=== PATIENT | male | born 1970 | race Caucasian/White ===

== ENCOUNTER 2021-09-05 12:50 | Observation (INO) | payer OTHER, SELFPAY ==
[2021-09-05] VITALS (14 sets, daily range): BP systolic 112–153; BP diastolic 79–111; PULSE 56–106; RESP 12–20; TEMP 36.3–37.1; O2SAT 97–100; BMI 30.3
--- NOTE | ~2021-09-05 | CT_ITS ---
EXAMINATION: CTA chest PE protocol DATE: 09/05/2021 14:32 INDICATION: Chest pain. Hypertension. TECHNIQUE: Computed tomography angiography (CTA) of the chest was performed with 100 mL Omnipaque-350 intravenous contrast timed to evaluate the pulmonary arteries. Coronal maximum intensity projection 3D-reconstructions were created by the technologist. Automated exposure control and iterative reconst ruction technique were employed. Exam dose: 445.05 mGy-cm total exam DLP. COMPARISON: 09/05/2021 portable AP chest 07/01/2017 CT chest FINDINGS: There is diagnostic contrast enhancement of the pulmonary arteries and no evidence of pulmo nary embolism. No thoracic aortic aneurysm or dissection. No hilar or mediastinal mass lesion or lymphadenopathy. No rmal heart size. There is trace pericardial fluid. No pleural effusion. Stable 12 mm nodule, left lower lobe, not significant change since 07/30/2016, consistent with benign process. No pulmonary infiltrate or consolidation or other pulmonary mass lesion. Included skeletal structures are unremarkable. IMPRESSION: No evidence of pulmonary embolism Years-long stable 12 mm left lower lobe nodule consistent with benign process, likely a pulmonary juan carlos ign granuloma Reviewed, dictated and finalized at [facility]. Reviewed, dictated and finalized at [facility]. K AND WATCH HANDS DIPPER IMPRESSION: No evidence of pulmonary embolism Years-long stable 12 mm left lower lobe nodule consistent with benign process, likely a pulmonary benign granuloma
--- NOTE | ~2021-09-05 | XR_ITS ---
XR chest 1V portable DATE: 09/05/2021 13:19 INDICATION: Chest pain TECHNIQUE: Portable upright AP chest on 09/05/2021 1313 hours COMPARISON: 07/01/2017 CT chest 04/10/2016 CT chest FINDINGS: Normal heart size. No hilar or mediastinal enlargement. Stable circumscribed 4 mm opacity in the medial left lower lobe, unchanged since 07/01/[address] examinations, likely a benign pulmonary granuloma. No pulmonary infiltrate or consolidation, pleural effusion or pulmonary vascular congestion or pneumothorax. IMPRESSION: No active cardiopulmonary disease Reviewed, dictated and finalized at [facility]. ING CONTROL CLERK
--- NOTE | 2021-09-05 12:54 | ECG_ITS ---
Measurements Intervals [place] Rate: 75 P: 21 RI: 150 QRS: 3 QRSD: 112 T: 24 QT: 388 QTc: 435 Interpretive Statements SINUS RHYTHM POSSIBLE LEFT ATRIAL ENLARGEMENT DELAYED PRECORDIAL R/S TRANSITION BORDERLINE ECG Electronically Signed On 09-05-2021 13:14:03 ALMOND BLANCHER OPERATOR by Sebastián Quintero D.O.
--- NOTE | 2021-09-05 13:18 | ED.CHESTPAIN ---
HPI - Chest Pain General Chief Complaint: Chest Pain Stated Complaint: . Time Seen by Provider: 09/05/21 12:54 Source: patient Mode of arrival: ambulatory Limitations: no limitations History of Present Illness HPI narrative: Patient is 50 years old white male presented to the ED complaining of chest tightness, squeezing, pressure started early this morning. Associated with palpitation, fluttering, skipped beats with elevated blood pressure in the range of 150/110. Later patient started having pain at the jaw area mainly on the right side, like tingling and numbness. Subsequently shooting pain at the left side of the back, tingling and numbness of the right hand. Patient reports that he been having stress which is not different than before. Patient is allergic to aspirin. History of asthma. Patient denies smoking, or using drugs. Drinks occasionally. Related Data Home Medications Medication Instructions Recorded Confirmed meloxicam 09/05/21 montelukast mg 09/05/21 testosterone cypionate mg 09/05/21 Allergies Allergy/AdvReac Type Severity Reaction Status Date / Time aspirin Allergy Unknown Verified 09/05/21 13:11 NSAIDS (Non-Steroidal Allergy Unknown Verified 09/05/21 13:11 Anti-Inflamma Review of Systems Review of Systems: CONSTITUTIONAL: Denies fever, chills, or sweats. EYES: Denies visual changes, redness, or discharge. ENT: Denies rhinorrhea, congestion, sore throat, or otalgia. CARDIOVASCULAR: Chest pain RESPIRATORY: Denies cough or dyspnea. GASTROINTESTINAL: Denies abdominal pain, nausea, vomiting, or diarrhea. GENITOURINARY: Denies dysuria or hematuria. SKIN: Denies rash or itching. MUSCULOSKELETAL: Denies back pain, joint pain, or myalgia. NEUROLOGIC: Denies headache, numbness, or weakness. PSYCHIATRIC: Denies anxiety or depression. Exam Narrative: General appearance: Well-developed, well-nourished Skin: Normal color Head: Normocephalic, nontraumatic Eyes: Clear conjunctiva Chest and respiratory: Airway patent, no respiratory distress, no accessory muscle use Heart: Regular rate/rhythm Vascular: Normal peripheral pulses, normal capillary refill. Musculoskeletal: Normal range of motion, nontender back Neurologic: Alert and oriented ?3, CLOTH LAYER is normal as tested, no gross motor deficit Course Course Emergency Course: Stable Vital Signs Vital signs: Vital Signs Temperature 37.1 C 09/05/21 12:56 Pulse Rate 83 09/05/21 12:56 Respiratory Rate 12 09/05/21 12:56 Blood Pressure 153/111 H 09/05/21 12:56 Pulse Oximetry 100 09/05/21 12:56 Temperature 37.1 C 09/05/21 12:56 Pulse Rate 72 09/05/21 13:51 Respiratory Rate 12 09/05/21 13:51 Blood Pressure 138/101 H 09/05/21 13:51 Pulse Oximetry 98 09/05/21 13:51 MDM - Chest Pain MDM Narrative Medical decision making narrative: Patient presents with chest pain, and palpitation. Depression diagnosis as below Differential Diagnosis Differential diagnosis: Likely atypical chest pain and other (Palpitation, hyperthyroidism, electrolyte imbalance, anxiety like symptoms, coronary artery syndrome, pulmonary embolism) Lab Data Result diagrams: 09/05/21 13:21 09/05/21 13:21 Labs: Lab Results 09/05/21 09/05/21 09/05/21 Range/Units 13:21 13:21 13:21 WBC 8.4 (4.5-10.0) K/mm3 RBC 5.03 (4.6-6.20) M/mm3 Hgb 16.1 (14.0-18.0) g/dL Hct 47.8 (42.0-52.0) % MCV 95.0 (80-100) fl MCH 32.0 (26-34) pg MCHC 33.7 (32-36) g/dl RDW 12.8 (11.5-14.5) % Plt Count 240 (150-375) k/mm3 MPV 9.7 (7.4-10.4) fl Immature Gran % (Auto) 0.4 (0-0.5) % Neut % (Auto) 56.9 (45.5-7
[2021-09-05 13:29] LABS: Basophils Percent Auto 0.5 % (0.2-1.2); Eosinophils Absolute Auto 0.9 K/mm3 (0-0.3); Eosinophils Percent Auto 10.4 % (0-4.4); Hematocrit 47.8 % (42.0-52.0); Hemoglobin 16.1 g/dL (14.0-18.0); Immature Granulocyte Absolute 0.03 K/mm3 (0.00-0.031); Immature Granulocyte Percent A 0.4 % (0-0.5); Lymphocytes Percent Auto 21.4 % (18.3-44.2); Mean Corpuscular HGB Conc 33.7 g/dl (32-36); Mean Platelet Volume 9.7 fl (7.4-10.4); Monocytes Absolute Auto 0.9 K/mm3 (0.1-0.6); Monocytes Percent Auto 10.4 % (2.6-8.5); Neutrophils Absolute Auto 4.8 K/mm3 (1.3-6.7); Neutrophils Percent Auto 56.9 % (45.5-73.1); Platelet Count Result 240 k/mm3 (150-375); Red Blood Count 5.03 M/mm3 (4.6-6.20); Red Cell Distribution Width 12.8 % (11.5-14.5); White Blood Count 8.4 K/mm3 (4.5-10.0)
[2021-09-05 13:44] LABS: Prothrombin Time 13.2 Seconds (11.1-14.7)
[2021-09-05 13:46] LABS: Alanine Aminotransferase 74 U/L (4-50); Albumin Level 4.5 g/dL (3.5-5.1); Alkaline Phosphatase 76 U/L (38-126); Anion Gap 11 mmol/L (8-16); Aspartate Amino Transferase 47 U/L (17-59); Bilirubin,Total 1.3 mg/dL (0.2-1.3); Blood Urea Nitrogen 14 mg/dL (9-20); Calcium 9.3 mg/dL (8.4-10.2); Carbon Dioxide 28 mmol/L (22-30); Chloride 99 mmol/L (98-107); D Dimer 0.99 ug/mL (<0.48); Estimated CRCL calculation 82 ml/min; Estimated Glomerular Filt Rate > 60; Glucose 93 mg/dL (65-110); Potassium 4.2 mmol/L (3.4-5.0); Sodium 138 mmol/L (137-145)
[2021-09-05] MEDS: NITROGLYCERIN SL 0.4 MG TABLET SUBLINGUAL (13:49)
[2021-09-05] MEDS: METOPROLOL TARTRATE 50 MG TAB 25 MG PO (13:49)
[2021-09-05] MEDS: CLOPIDOGREL BISULFATE 75 MG TABLET PO (13:49)
[2021-09-05 13:55] LABS: NT Pro B Type Natriuretic Pept 41 pg/mL (5-100)
[2021-09-05 13:57] LABS: Troponin I < 0.012 ng/mL (0.000-0.034)
--- NOTE | 2021-09-05 16:10 | ECG_ITS ---
Measurements Intervals [place] Rate: 55 P: 52 OR: 153 QRS: 6 QRSD: 121 T: 47 QT: 423 QTc: 408 Interpretive Statements SINUS BRADYCARDIA POSSIBLE LEFT ATRIAL ENLARGEMENT DELAYED PRECORDIAL R/S TRANSITION BORDERLINE ECG Electronically Signed On 09-05-2021 18:17:20 KETTLE GIRL by Sebastián Quintero D.O.
[2021-09-05 16:51] LABS: Troponin I < 0.012 ng/mL (0.000-0.034)
--- NOTE | 2021-09-05 17:11 | PC.NURSE ---
This patient, Armando Mccoy, was admitted to IMU Room 212-01. Patient/family oriented to hospital policies and general routines including ID bracelet, bed and alarms, visiting hours, pain management, procedures, bathroom and other care routines, personal items, smoking policy, room service/diet, and visiting hours. Information on how to activate the Rapid Response Team has been discussed. Patient/Family are encouraged to report perceived risks to care and to ask questions if they do not understand what they are told or what they should do.
[2021-09-05 20:17] LABS: Troponin I < 0.012 ng/mL (0.000-0.034)
[2021-09-05] MEDS: METOPROLOL TARTRATE 25 MG TABLET PO (20:53)
--- NOTE | 2021-09-05 22:55 | PM.IMHP ---
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 The patient stated that he has been feeling some rapid heart rate in possibly PVCs. The patient stated in the past he is had what felt like PVCs were is had some skipped beats. He has not had any previous heart disease. He does have some anxiety but states he feels pretty relaxed. Patient recent came back from vacation in [place]. Today the patient came to the emergency room complaining of chest tightness, squeezing, pressure it was midsternal and started early this morning. He has some palpitations, fluttering and some skipped beats with elevated blood pressure this morning. Patient's blood pressure in was in the range of 150/110. He was also having some pain to his left jaw area on the right side though. He also had shooting pain to the left side of the back tingling numbness of the right hand. The patient admits to drinking too much caffeine at times. 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 The patient stated he recently has not had any problems with that condition. The patient's EKG was sinus rhythm possible left atrial enlargement. His next EKG was showing sinus bradycardia. D-dimer was found to be 0.99. Patient's troponins are negative x3. Chest CTA was read as no evidence of pulmonary embolism. Years long stable 12 mm left lower lobe nodule consistent with benign process. Likely a pulmonary benign granuloma. Chest x-ray was read as no acute cardiopulmonary disease. Patient still has some mild discomfort to the mid sternum. It is nonreproducible. The patient states that he has not had any injury are lifted anything heavy. The patient had been given a metoprolol and a Plavix in the emergency room. Cardiology has been consulted. The patient is being admitted to observation status on the date of service of 09/05/2021. Chief Complaint: Chest pain Review of Systems Review of Systems: All systems reviewed & are unremarkable except as noted in HPI and below Constitutional: Constitutional: Reports as per HPI and Reports no additional constitutional complaints Eyes: Eyes: Reports as per HPI and Reports no additional eye complaints ENT: Reports system reviewed and no additional complaints, except as documented and Reports Normal hearing present Cardiovascular: Cardiovascular: Reports no additional cardiovascular complaints Respiratory: Respiratory: Reports no additional respiratory complaints and Reports no additional respiratory complaints Gastrointestinal: Gastrointestinal: Reports as per HPI and Reports no additional gastrointestinal complaints Musculoskeletal: Musculoskeletal: Reports no additional musculoskeletal complaints Integumentary/Breasts: Skin/Breast: Reports system reviewed and no additional complaints, except as docu and Reports as per HPI Neurologic: Reports system reviewed and no additional complaints, except as documented, Reports as per HPI and Reports Normal hearing present Psychiatric: Psychiatric: Reports no additional psychiatric complaints and Reports as per HPI Endocrine: Endocrine: Reports no additional endocrine complaints Hematologic/Lymphatic: Hematologic/Lymphatic: Reports no additional hematologic/lymphatic complaints Allergic/Immunologic: Allergic/Immunologic: Reports no additional allergic/immunologic complaints PMFSH Past Medical History Medical History (Updated 09/05/21 @ 23:43 by Opal Darnell NP) Anxiety Samter's triad Surgical History Surgical History (Updated 09/05/21 @ 23:43 by Opal Darnell NP) H/O arthroscopic knee surgery History of back surgery History of shoulder surgery Family History Family History Mother Lung cancer Social History Social History (Updated 09/05/21 @ 23:44 by Opal Darnell NP) Social History: The patient works has the [employer]
--- NOTE | 2021-09-06 | ECHO_ITS ---
Patient Info Name: Armando Mccoy Age: 50 years : 1970 Gender: Male Ht: 70 in Wt: 211 lbs BSA: 2.20 m2 HR: 68 bpm BP: 126 / 72 mmHg Heart Rhythm: Sinus Rhythm Technical Quality: Fair Exam Date: 09/06/2021 7:30 AM Exam Location: [facility] Pulmonary Patient Status: Inpatient Admit Date: 09/05/2021 Staff Ordering Physician: Opal Darnell NP Rug Dry Room Attendant: Darlyn Hernández RDCS Attending Provider: Alyce Muro PA-C Referring Physician: Carie CHÁVEZ; Exam Type: CA echo doppler color flow Study Info Indications - chest pain, murmur Complete two-dimensional, color flow and Doppler transthoracic echocardiogram is performed. Summary 1. Complete two-dimensional, color flow and Doppler transthoracic echocardiogram is performed. 2. Left ventricular chamber dimension is normal. 3. Left ventricular systolic function is normal, estimated at 60-65%. 4. There is mildly increased left ventricular wall thickness. 5. The left ventricular diastolic function is grade I diastolic dysfunction. 6. The aortic root size at the sinus of Valsalva is mildly dilated. Left Ventricle Left ventricular chamber dimension is normal. Left ventricular systolic function is normal, estimated at 60-65%. There is mildly increased left ventricular wall thickness. The left ventricular diastolic function is grade I diastolic dysfunction. Right Ventricle Right ventricular chamber dimension is normal. Right ventricular systolic function is normal. Left Atria Left atrial chamber dimension is normal. Right Atria Right atrial chamber dimension is normal. Atrial Septum Intact interatrial septum visualized by color flow imaging. Aortic Valve The aortic valve is trileaflet. There is mild aortic valve sclerosis. There is no aortic valve stenosis. There is trace aortic valve regurgitation. Pulmonic Valve The pulmonic valve is normal. There is no pulmonic valve stenosis. There is trace pulmonic regurgitation. Mitral Valve The mitral valve has normal leaflets. There is no mitral valve stenosis. There is trace mitral valve regurgitation. Tricuspid Valve The tricuspid valve leaflets are normal. There is no significant tricuspid valve stenosis. There is trace tricuspid valve regurgitation. No pulmonary hypertension, estimated pulmonary arterial systolic pressure is 27 mmHg. Pericardium/Pleural The pericardium appears epicardial fat pad. There is no pericardial effusion. Inferior Vena Cava Normal inferior vena cava with <50% collapse upon inspiration consistent with normal right atrial pressure, 10 mmHg. Aorta The aortic root size at the sinus of Valsalva is mildly dilated. Left Ventricular Outflow Tract Name Value Normal LVOT 2D LVOT Diameter 2.3 cm LVOT Doppler LVOT Peak Gradient 3 mmHg LVOT Mean Gradient 1 mmHg LVOT VTI 17 cm LVOT VTI/AV VTI Ratio 0.8 LVOT Stroke Volume 71 ml LVOT CO 4.1 l/min
--- NOTE | 2021-09-06 | EST_ITS ---
Patient Info Name: Armando Mccoy Age: 50 years : 1970 Gender: Male Ht: 70 in Wt: 212 lbs BSA: 2.20 m2 HR: 82 bpm BP: 124 / 89 mmHg Heart Rhythm: Sinus Rhythm Exam Date: 09/06/2021 8:53 AM Exam Location: [facility] Stress Patient Status: Outpatient Admit Date: 09/05/2021 Staff Ordering Physician: Opal Darnell NP Attending Provider: Alyce Muro PA-C Exercise Technologist: Lovely Calix CT Exercise Physician: Octavio Gamino MD Exam Type: CA stress test treadmill Study Info Indications R07.9 - Chest pain, unspecified An exercise stress test was performed. Summary 1. Normal ST segment response to stress. 2. HTN BP response. 3. Below average exercise capacity. Protocol: [facility] Stress ECG Details Stage: REST Duration (min): 2 min : 12 sec Speed (mph): 0.0 Grade (%): 0 HR (bpm): 72 SBP (mmHg): 124 DBP (mmHg): 89 METS: --- Stage: REST Duration (min): 20 min : 1 sec Speed (mph): 0.0 Grade (%): 0 HR (bpm): 82 SBP (mmHg): 124 DBP (mmHg): 89 METS: --- Stage: STAGE 1 Duration (min): 1 min : 0 sec Speed (mph): 1.7 Grade (%): 10 HR (bpm): 106 SBP (mmHg): 124 DBP (mmHg): 89 METS: --- Stage: STAGE 1 Duration (min): 2 min : 0 sec Speed (mph): 1.7 Grade (%): 10 HR (bpm): 116 SBP (mmHg): 124 DBP (mmHg): 89 METS: --- Stage: STAGE 1 Duration (min): 3 min : 0 sec Speed (mph): 1.7 Grade (%): 10 HR (bpm): 100 SBP (mmHg): 149 DBP (mmHg): 73 METS: --- Stage: STAGE 2 Duration (min): 1 min : 0 sec Speed (mph): 2.5 Grade (%): 12 HR (bpm): 115 SBP (mmHg): 149 DBP (mmHg): 73 METS: --- Stage: STAGE 2 Duration (min): 2 min : 0 sec Speed (mph): 2.5 Grade (%): 12 HR (bpm): 130 SBP (mmHg): 186 DBP (mmHg): 89 METS: --- Stage: STAGE 2 Duration (min): 3 min : 0 sec Speed (mph): 2.5 Grade (%): 12 HR (bpm): 133 SBP (mmHg): 186 DBP (mmHg): 89 METS: --- Stage: STAGE 3 Duration (min): 1 min : 0 sec Speed (mph): 3.4 Grade (%): 14 HR (bpm): 148 SBP (mmHg): 186 DBP (mmHg): 86 METS: --- Stage: STAGE 3 Duration (min): 2 min : 0 sec Speed (mph): 3.4 Grade (%): 14 HR (bpm): 156 SBP (mmHg): 186 DBP (mmHg): 86 METS: --- Stage: STAGE 3 Duration (min): 3 min : 0 sec Speed (mph): 3.4 Grade (%): 14 HR (bpm): 160 SBP (mmHg): 220 DBP (mmHg): 93 METS: --- Stage: STAGE 4 Duration (min): 0 min : 30 sec Speed (mph): 4.2 Grade (%): 16 HR (bpm): 162 SBP (mmHg): 220 DBP (mmHg): 93 METS: --- Stage: RECOVERY Duration (min): 0 min : 29 sec Speed (mph): 0.0 Grade (%): 0 HR (bpm): 166 SBP (mmHg): 220 DBP (mmHg): 93 METS: --- Stage: REC
[2021-09-06 02:00] VITALS: PULSE 63
[2021-09-06 04:00] VITALS: BP 126/72; PULSE 55; PULSE 87; RESP 20; TEMP 36.6; O2SAT 97; O2SAT 99
[2021-09-06 05:54] LABS: Basophils Absolute Auto 0.1 K/mm3 (0.0-0.1); Basophils Percent Auto 0.7 % (0.2-1.2); Eosinophils Absolute Auto 1.6 K/mm3 (0-0.3); Eosinophils Percent Auto 18.9 % (0-4.4); Hematocrit 47.7 % (42.0-52.0); Hemoglobin 16.3 g/dL (14.0-18.0); Immature Granulocyte Absolute 0.04 K/mm3 (0.00-0.031); Immature Granulocyte Percent A 0.5 % (0-0.5); Lymphocytes Absolute Auto 2.41 K/mm3 (0.9-3.2); Lymphocytes Percent Auto 29.2 % (18.3-44.2); Mean Corpuscular HGB Conc 34.2 g/dl (32-36); Mean Corpuscular Volume 93.7 fl (80-100); Mean Platelet Volume 9.9 fl (7.4-10.4); Monocytes Percent Auto 12.1 % (2.6-8.5); Neutrophils Absolute Auto 3.2 K/mm3 (1.3-6.7); Neutrophils Percent Auto 38.6 % (45.5-73.1); Platelet Count Result 249 k/mm3 (150-375); Red Blood Count 5.09 M/mm3 (4.6-6.20); Red Cell Distribution Width 12.5 % (11.5-14.5); White Blood Count 8.3 K/mm3 (4.5-10.0)
[2021-09-06 06:00] VITALS: PULSE 68
[2021-09-06 06:03] LABS: Lactic Acid Reflex 0.7 mmol/L (0.7-2.1)
[2021-09-06 06:06] LABS: Cholesterol 181 mg/dL (0-200); HDL Direct 36 mg/dL; Triglycerides 95 mg/dL (<150)
[2021-09-06 06:12] LABS: Alanine Aminotransferase 67 U/L (4-50); Albumin Level 4.3 g/dL (3.5-5.1); Alkaline Phosphatase 69 U/L (38-126); Anion Gap 10 mmol/L (8-16); Aspartate Amino Transferase 40 U/L (17-59); Bilirubin,Total 1.1 mg/dL (0.2-1.3); Blood Urea Nitrogen 18 mg/dL (9-20); CRP 0.8 mg/dL (<1.0); Calcium 9.2 mg/dL (8.4-10.2); Carbon Dioxide 29 mmol/L (22-30); Chloride 103 mmol/L (98-107); Estimated CRCL calculation 84 ml/min; Estimated Glomerular Filt Rate > 60; Glucose 93 mg/dL (65-110); Lactate Dehydrogenase 424 U/L (313-618); Lipase 417 U/L (23-300); Magnesium 2.1 mg/dL (1.6-2.3); Potassium 4.1 mmol/L (3.4-5.0); Sodium 142 mmol/L (137-145)
[2021-09-06 06:16] LABS: LDL Cholesterol Direct 120 mg/dL
[2021-09-06 08:00] VITALS: BP 127/90; PULSE 58; PULSE 64; RESP 14; TEMP 36.2; O2SAT 97
--- NOTE | 2021-09-06 08:45 | PC.NURSE ---
Patient to stress lab via wheelchair.
--- NOTE | 2021-09-06 10:40 | PC.NURSE ---
Patient returned to room following stress test.
--- NOTE | 2021-09-06 10:46 | PM.CNCAR ---
Assessment and Plan Assessment and plan (1) Chest pain: Qualifiers: Chest pain type: unspecified Qualified Code(s): R07.9 - Chest pain, unspecified Code(s): R07.9 - Chest pain, unspecified Status: Acute Assessment and Plan: Probably not related to coronary disease. Possibly related to significantly elevated blood pressure at the time. He has ruled out for myocardial infarction and serial EKGs have not shown any acute ST or T-wave abnormalities. Exercise stress EKG is ordered. Recommend treatment for his blood pressure. (2) Palpitations: Code(s): R00.2 - Palpitations Status: Acute Assessment and Plan: Likely benign. TSH is normal. Recommend that he reduce or eliminate his caffeine intake, reduce stress as much as possible, avoid Sudafed and like compounds and improved sleep av it is if need be. If his palpitations do not improve with these changes, would recommend an outpatient ekg monitor. (3) Essential hypertension: Code(s): I10 - Essential (primary) hypertension Status: Acute Assessment and Plan: Will discontinue metoprolol. I did talk about using metoprolol for treatment his palpitations and his high blood pressure but he is concerned about the side effects and particular lethargy and tiredness. Therefore I am going to start him on losartan 25 mg daily. History of Present Illness History of Present Illness Consult date/time: 09/06/21 10:46 Requesting physician: Nettie Jones MD Consult reason: chest pain and Other (Palpitations) Reason For Visit: Chest Pain,palpations Narrative: Reason consultation: Chest pain, palpitations Date of service 09/06/2021 Requesting provider: Dr. 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 Patient has noticed some fluttering in his chest for about 1 year. Flutter in became more significant over the past month or so. He had an episode about a month ago in which she had some fluttering which lasted for several hours. He states that his fluttering will feel like a skipped beat every palpate his pulse. He has also noticed that his blood pressure has been more elevated as of late as high as in the 160s to 170s range over 1 teens. Yesterday it was noticed that his blood pressure was high. He states that he woke up in simply did not feel very well. He then started developing a pressure and squeezing sensation in his chest. He noticed some tingling in his teeth and jaw area on the right side. He also had some sharp stabbing pains that went into his back. This sharp stabbing pains or short lived and on lasted for secondary 2. The pressure and squeezing sensation though lasted for about 4-5 hours at least. It was constant. There is no associated symptoms of nausea, shortness breath or diaphoresis. Because of the constellation of symptoms he decided to go to the emergency department for further workup and evaluation. He is ruled out for myocardial infarction with serial cardiac enzymes. He does admit to drinking a lot of diet Coke. EKG showed no acute ST or T-wave abnormalities. Review of Systems Review of Systems: All systems reviewed & are unremarkable except as noted in HPI and below Constitutional: Constitutional: Denies weakness Eyes: Eyes: Denies blurry vision ENT: Reports Normal hearing present and Reports nasal congestion Cardiovascular: Cardiovascular: Reports chest pain Respiratory: Respiratory: Denies dyspnea Gastrointestinal: Gastrointestinal: Denies abdominal pain Genitourinary: Genitourinary: Denies dysuria Musculoskeletal: Musculoskeletal: Denies neck pain Integumentary/Breasts: Skin/Breast: Denies dry skin Neurologic: Denies headache(s) Psychiatric: Psychiatric: Denies anxiety Endocrine: Endocrine: Denies excessive sweating Hematologic/Lymphatic: Hematologic/Lymphatic: Den
[2021-09-06] MEDS: LOSARTAN POTASSIUM 25 MG TABLET PO (11:52)
--- NOTE | 2021-09-06 12:10 | PM.DS ---
DS: Admitting Diagnosis Discharge Date 09/06/2021 Admitting Diagnosis Chest pain, palpitations DS: Discharge Diagnosis Discharge Diagnosis (1) Chest pain: Qualifiers: Chest pain type: unspecified Qualified Code(s): R07.9 - Chest pain, unspecified Code(s): R07.9 - Chest pain, unspecified Status: Acute Assessment and Plan: Presented with chest tightness. Cardiac enzymes negative x3. EKG reviewed. Echo reviewed - no wall motion abnormalities. Stress test performed and was normal. He was seen in consultation by cardiology. [place] to be related to elevated blood pressure on presentation. (2) Palpitations: Code(s): R00.2 - Palpitations Status: Acute Assessment and Plan: Evaluated by cardiology. Normal TSH. Recommended to decrease caffeine consumption as patient admitted to drinking several diet cokes daily. Also to decrease stress and improve sleep hygiene. If palpitations persist he can follow up with cardiology for outpatient telemetry monitoring. (3) Essential hypertension: Code(s): I10 - Essential (primary) hypertension Status: Acute Assessment and Plan: Blood pressure markedly elevated on presentation up to 153/111. Metoprolol initiated for managment of hypertension and for treatment of palpitations but patient was concerned about adverse effects and therefore was started on losartan 25 mg daily which he will continue. Follow up with PCP in 1 week for blood pressure monitoring. Blood pressure normalized prior to discharge. (4) Anxiety: Code(s): F41.9 - Anxiety disorder, unspecified Status: Chronic Assessment and Plan: No acute issues. Continue venlafaxine. DS: Summary Hospital Course Hospital Course: Date of admission: 09/05/2021 Date of discharge: 09/06/2021 Armando Mccoy is a 50-year-old male with a history of anxiety, hypertension, and [place] who presented to the emergency department on 09/05/2021 with complaints of chest tightness and pressure with associated palpitations and elevated blood pressure. On presentation to the emergency department, his blood pressure was 153/111, additional vital signs were stable, CBC and BMP within normal limits, troponin negative, CXR showed no acute cardiopulmonary disease, and CTA showed no PE. He was admitted to the hospitalist service for further evaluation and management and was seen in consultation by cardiology. Please see above for further details. His chest pain resolved and he had a negative stress test. His blood pressure improved with initiation of medication which he will continue. The patient was feeling back to his usual state of health and given his overall improvement, he was determined to no longer require inpatient care and was felt to be stable for discharge. Consulting specialist in agreement with discharge. He was discharged in hemodynamically stable condition on 09/06/2021. Status at Discharge Functional status at discharge: independent ambulation Overall status at discharge: patient is back to baseline Time Spent with Patient Time attestation: Total time spent providing and/or coordinating discharge services: 28 minutes Time spent: Less than 30 minutes Exam Narrative: Mr. Mccoy is a well-nourished, well-appearing 50-year-old female who is lying semi-recumbent in bed. He appears comfortable and is in NARD. Neuro: awake, alert and oriented x4, speech clear, no focal neuro deficits noted HEENMT: normocephalic, atraumatic, EOMI, sclerae anicteric Neck: supple, no lymphadenopathy Respiratory: clear to auscultation bilaterally, nonlabored breathing Cardio: regular rate, regular rhythm with S1-S2 Abdomen: nondistended, normoactive bowel sounds, soft, nontender to palpation Skin: no rashes or lesions, warm and dry Psych: appropriate mood and affect, judgment and insight intact DS: Data Data Completed and Pending Labs on day of discharge: Labs from [facility]
== END 2021-09-06 12:46 | disposition home or self-care (01) ==
LOC: ANHED 15:11 → ANHIMU 16:29
PROVIDERS: Nurse Practitioner; Admitting Provider Internal Medicine; Emergency Provider Emergency Medicine; Visit Provider Internal Medicine
DX: R07.9 Chest pain, unspecified (principal); R91.8 Other nonspecific abnormal finding of lung field; R00.2 Palpitations; F41.9 Anxiety disorder, unspecified; I10 Essential (primary) hypertension; J45.909 Unspecified asthma, uncomplicated; J33.9 Nasal polyp, unspecified; Z88.6 Allergy status to analgesic agent
CPT/HCPCS: 36415; 71045; 71275; 80053; 80061; 82728; 83605; 83615; 83690; 83735; 83880; 84443; 84484; 85025; 85380; 85610; 85730; 86140; 93005; 93017; 93306; 99285; A9270; G0378; Q9967

== ENCOUNTER 2023-02-25 12:20 | Outpatient (NON) | payer OTHER, SELFPAY | END 2023-02-25 12:21 | disposition home or self-care (01) | LOC: ANHLAB 02-27 12:23 | PROVIDERS: Visit Provider Nurse Practitioner | DX: L28.1 Prurigo nodularis (principal) | CPT/HCPCS: 88305 ==

== ENCOUNTER 2025-03-22 08:22 | Outpatient (CLI) | payer OTHER, SELFPAY ==
--- NOTE | 2025-03-22 | ECG_ITS ---
Test Date: 2025-03-22 08:42:38 Measurements Intervals [place] Rate: 59 P: 40 MD: 148 QRS: -17 QRSD: 120 T: 41 QT: 412 QTc: 410 Interpretive Statements SINUS BRADYCARDIA INTRAVENTRICULAR CONDUCTION DELAY DELAYED PRECORDIAL R/S TRANSITION BORDERLINE ECG No previous ECG available for comparison Electronically Signed On 03-22-2025 09:05:59 CDT by Sebastián Quintero D.O.
--- OUTSIDE RECORDS SUMMARY | 2025-03-22 08:29 | XMS_ITS | Clinical Summary ---
Author Organization [facility] Address [address] [place] [address] Care Team Providers Care Plant Electrician Name Role Phone Unavailable Primary Care Provider Unavailabl e Source Comments [facility],non-owned Affiliates and Associated Physician Practices is amultiple site organization consisting of ambulatory clinics and hospital sitesin [place], [place], [place] and [place]. This disclosure is being madepursuant to the Care Everywhere program and may not contain all information available regarding this patient. Last updated 18.[facility] B[facility] Box Allergies No known active allergies Medications * Be aware that medications may not be up to date on this document. Alwaysverify current medications with the patient. 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 At that time he notes significant generalized joint pain and fatigue. Has had improved fatigue symptoms since but experiences muscle cramping of the lower extremities with cooler temperatures. Also reports knee and ankle pain as well as AM joint stiffness that improves with activity. Does have moderate tricompartmental OA seen on 2016 x-ray of the left knee. Denies other joint complaints and no CTD symptoms. No contributory FH. Physical exam revealed mild tenderness to palpation of the right lateral malleolus/anteroinferior aspect. No synovitis appreciated on exam with full range of motion all extremities and 5/5 muscle strength. At this time there does not appear to be a connective tissue disease or inflammatory arthritis occurring. Recommend follow-up if symptoms worsen and/or new symptoms develop. Seen with Dr. Cagle. 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 Gender Identity Not on file Sexual Orientation Not on file Plan of Treatment Health Maintenance Due Date Last Done Comments COLOGUARD (AGES 45-75) - COL ON CA SCREENING 1971 COLON MONITORING 1971 COLONOSCOPY - COLON CA SCREENING 1971 CT COLONOGRAPHY - COLON CA SCREENING 1971 Colorectal Cancer Screening 1971 FIT - COLON CA SCREENING 1971 FLEX SIG - COLON CA SCREENING 1971 LIPID TESTING 1971 HIV SCREENING 12/16/1986 HEPATITIS C SCREENING 12/12/1989 DTAP/TDAP/TD VACCINES (1 - Tdap) 12/16/1990 HEPATITIS B VACCINE (1 of 3 - 19+ 3-dose series) 12/16/1990 PNEUMOCOCCAL VACCINE 50+ (1 of 1 - PCV) 12/16/2021 ZOSTER VACCINE (1 of 2) 12/16/2021 COVID-19 VACCINE (1 - 2023-2 5 season) 2024 DEPRESSION SCREENING 08/19/2024 INFLUENZA VACCINE (#1) 2025 HIB VACCINE Aged Out No longer eligi ble based on patient's age to complete this topic HPV VACCINE Aged Out No longer eligi ble based on patient's age to complete this topic MENINGOCOCCAL (Group B) VACC INE SHARED DECISION-MAKING Aged Out No longer eligibl e based on patient's age to complete this topic MENINGOCOCCAL GROUPS A/C/Y/W VACCINE Aged Out No longer eligible b ased on patient's age to complete this topic Insurance
--- OUTSIDE RECORDS SUMMARY | 2025-03-22 08:29 | XMS_ITS | Encounter Summary ---
Author Organization [facility] Address [address] [place] [address] Care Team Providers Care Pet Sitter Name Role Phone Zaida Perea MD Primary Care Provider [phone] Encounter Details Date Type Department Care Team (Late st Contact Info) Description 02/12/2008 Outpatient Historical HIS MRI DEPT Timoteo Murdock MD [address] [phone] Unspecified Sinusitis (Chronic) Social History Tobacco Use Types Packs/Day Years Used Date Smoking Tobacco: Never Alcohol Use Standard Drinks/Week Comments Yes 5 (1 standard drink = 0.6 oz pur e alcohol) Sex and Gender Information Value Date Recorded Sex Assigned at Not on file 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 Gender Identity Not on file Sexual Orientation Not on file documented as of this encounter Plan of Treatment Not on file documented as of this encounter Procedures Procedure Name Priority Date/Time Associated Diagnosis Comments CT SINUS FACIAL BONES WO CONTRAST Timed Study 02/12/2008 3:41 PM CDT documented in this encounter Results * CT SINUS FACIAL BONES WO CONTRAST (02/12/2008 3:41 PM CDT) Anatomical Region Laterality Modality Head Other 02/12/2008 3:41 PM CDT Narrative 02/12/2008 5:04 PM CDT [address] [address] Admit Date: 02/12/2008 LUIS PINZON Sex: M Admit Prov: TIMOTEO MURDOCK Date: 1970 Primary Care Prov: ZAIDA PEREA CMRN: [id number] [id number] IM[facility]ING [facility] Ordering Prov: N/A Accession Number: [id number] Interpretation Maxillofacial CT without contrast 02/12/2008 History: Chronic sinusitis Comparison: 12/10/2007 The stealth sinus protocol was performed, demonstrating complete opacification of the frontal and ethmoid sinuses. There is near-complete opacification of the left maxillary and the sphenoid region. There is approximately 50% opacification of the right maxillary sinus. It appears that the patient has undergone partial right middle turbinate resection and prior uncinate resection. There is no fat stranding in the orbits, and no bony destruction is seen. Impression: Paranasal sinus disease worsened compared with November 2007. . Dictated by: RADHA HONEYCUTT 02/12/2008 16:12 Electronically signed by: RADHA HONEYCUTT 02/12/2008 17:03 Transcribed: 02/12/2008 16:14 AMK Procedure Note Radha Honeycutt - 02/12/2008 [facility] [address] [place], [place] [address] Admit Date: 02/12/2008 LUIS PINZON Sex: M Admit Prov: TIMOTEO MURDOCK Date: 1970 Primary Care Prov: ZAIDA PEREA CMRN: [id number] [facility] [id number] IMAGING SERVICES Ordering Prov: N/A Interpretation Maxillofacial CT without contrast 02/12/2008 History: Chronic sinusitis Comparison: 12/10/2007 The stealth sinus protocol was performed, demonstrating complete opacification of the frontal and ethmoid sinuses. There isnear-complete opacification of the left maxillary and the sphenoid region. Thereis approximately 50% opacification of the right maxillary sinus. Itappears that the patient has undergone partial right middle turbinateresection and prior uncinate resection. There is no fat stranding in the orbits,and no bony destruction is seen. Impression: Paranasal sinus disease worsened compared with November2007. . Dictated by: RADHA HONEYCUTT 02/12/2008 16:12 Electronically signed by: RADHA HONEYCUTT 02/12/2008 17:03 Transcribed: 02/12/2008 16:14 AMK Timoteo Murdock MD CT ORDERABLES Final Result documented in this encounter Visit Diagnoses Diagnosis Unspecified sinusitis (chronic) documented in this encounter Care Teams Pet Sitter Relationship Specialty Start Date End Date Zaida Perea MD [address] [address] PCP - General 12/24/07 03/27/16 documented as of this encounter
--- OUTSIDE RECORDS SUMMARY | 2025-03-22 08:29 | XMS_ITS | Encounter Summary ---
Author Organization [facility] Address [address] [place] [address] Care Team Providers Care Event Specialist Food Demonstrator Name Role Phone Pedro Luis Perea MD Primary Care Provider [phone] Encounter Details Date Type Department Care Team (Latest Contact Info) Description 12/25/2007 Outpatient Historical HIS [facility] Pedro Luis Jones MD [address] [address] Unspecified Asthma Social History Tobacco Use Types Packs/Day Years Used Date Smoking Tobacco: Never Alcohol Use Standard Drinks/Week Comments Yes 5 (1 standard drink = 0.6 oz pur e alcohol) Sex and Gender Information Value Date Recorded Sex Assigned at Not on file Legal Sex Male 3:16 AM INTERVENTION SPECIALIST Gender Identity Not on file Sexual Orientation Not on file documented as of this encounter Plan of Treatment Not on file documented as of this encounter Visit Diagnoses Diagnosis Unspecified asthma(493.90) Unspecified asthma documented in this encounter Care Teams Event Specialist Food Demonstrator Relationship Specialty Start Date End Date Pedro Luis Perea MD [address] [address] PCP - General 12/24/07 03/27/16 documented as of this encounter
--- OUTSIDE RECORDS SUMMARY | 2025-03-22 08:29 | XMS_ITS | Encounter Summary ---
Author Organization [facility] Address [address] [place] [address] Care Team Providers Care Ultrasonic Seaming Machine Operator Name Role Phone Pedro Luis Perea MD Primary Care Provider Encounter Details Date Type Department Care Team (Latest Contact Info) Description 10/08/2008 Outpatient Historical HIS [facility] Pedro Luis Jones MD [address] [address] Routine General Medical Examination at a Health Care Facility Social History Tobacco Use Types Packs/Day Years Used Date Smoking Tobacco: Never Alcohol Use Standard Drinks/Week Comments Yes 5 (1 standard drink = 0.6 oz pur e alcohol) Sex and Gender Information Value Date Recorded Sex Assigned at Not on file Legal Sex Male 3:16 AM PCA ASSISTED LIVING Gender Identity Not on file Sexual Orientation Not on file documented as of this encounter Plan of Treatment Not on file documented as of this encounter Visit Diagnoses Diagnosis Routine general medical examination at a health care facility documented in this encounter Care Teams Ultrasonic Seaming Machine Operator Relationship Specialty Start Date End Date Pedro Luis Perea MD [address] [address] PCP - General 12/24/07 03/27/16 documented as of this encounter
--- OUTSIDE RECORDS SUMMARY | 2025-03-22 08:29 | XMS_ITS | Clinical Summary ---
Author Organization [facility] Address [address] [place] [address] Phone Care Team Providers Care Rn Supplemental Name Role Phone Unavailable Primary Care Provider Unavailabl e Allergies No known active allergies Medications ALBUTEROL 90 mcg/Actuation Inhalation Aero Take 2 Puffs by inhalation every 6 hours as needed for Other (See Comment). Active predniSONE (DELTASONE) 10 mg tablet 6 Active meloxicam (MOBIC) 15 mg tablet TAKE 1 TABLET(15 MG) BY MOUTH DAILY 30 Tablet 3 7 Active Active Problems Problem Noted Date Diagnosed Date Asthma 09/10/2008 Routine general medical exam ination at a health care facility 09/10/2008 Immunizations Immunization Administration Dates Next Due (ADACEL/BOOSTRIX)(10 YR UP) TDAP VACCINE, 0.5ML, IM 08/19/2000 Family History Medical History Relation Name Comments Healthy Father Celiac Disease Mother Asthma Sister Relation Name Status Comments Father Alive Mother Alive Sister Social History Tobacco Use Types Packs/Day Years Used Date Smoking Tobacco: Never Smokeless Tobacco: Never Alcohol Use Standard Drinks/Week Comments Yes 5 (1 standard drink = 0.6 oz pur e alcohol) Sex and Gender Information Value Date Recorded Sex Assigned at Not on file Legal Sex Male 3:16 AM TALENT CONSULTANT Gender Identity Not on file Sexual Orientation Not on file Last Filed Vital Signs Vital Sign Reading Time Taken Comments Blood Pressure 132/68 05/22/2016 3:11 PM CDT Pulse 69 05/22/2016 3:11 PM CDT Temperature 37.2 C (98.9 F) 12/30/2008 3:41 PM CDT Respiratory Rate - - Oxygen Saturation - - Inhaled Oxygen Concentration - - Weight 90.7 kg (200 lb) 05/22/2016 3:11 PM CDT Height 180.3 cm (5' 11) 05/22/2016 3:11 PM CDT Body Mass Index 27.89 05/22/2016 3:11 PM CDT Plan of Treatment Health Maintenance Due Date Last Done Comments HEPATITIS B VACCINES (1 of 3 - 19+ 3-dose series) 11/19 DTAP/TDAP/TD VACCINES (2 - Td or Tdap) 08/19/2010 COLORECTAL SCREENING 12/16/2016 Colorectal Cancer Screening 12/16/2016 FIT-DNA Q 3 years 12/16/2016 FIT/FOBT Q 1 year 12/16/2016 Flex Sig/CT Colonography Q 5 years 12/16/2016 ZOSTER VACCINE (1 of 2) 12/16/2021 INFLUENZA VACCINE (#1) 2025 [facility]
--- OUTSIDE RECORDS SUMMARY | 2025-03-22 08:29 | XMS_ITS | Encounter Summary ---
Author Organization [facility] Address 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 Gender Identity Not on file Sexual Orientation Not on file documented as of this encounter Plan of Treatment Not on file documented as of this encounter Procedures Procedure Name Priority Date/Time Associated Diagnosis Comments CT SINUS FACIAL BONES WO CONTRAST Timed Study 12/10/2007 4:17 PM CDT documented in this encounter Results * CT SINUS FACIAL BONES WO CONTRAST (12/10/2007 4:17 PM CDT) Anatomical Region Laterality Modality Head Other 12/10/2007 4:17 PM CDT Narrative 12/11/2007 8:12 AM CDT [facility] [address] [place], [place] [address] Admit Date: 12/10/2007 PINZONLUIS SCHUSTER Sex: M Admit Prov: TIMOTEO MURDOCK Date: 1970 Primary Care Prov: PCP , NONE CMRN: [id number] Room: [facility] N: [id number] IMAGING SERVICES Ordering Prov: N/A Accession Number: [id number] Interpretation CT maxillofacial without contrast 12/10/2007 History: Chronic sinusitis Technique: 2.5 mm coronal images without contrast Findings: There are no previous examinations for comparison. There is severe mucosal thickening in the left frontal sinus. The right frontal sinus is completely opacified. The ethmoid air cells are completely opacified bilaterally. The left maxillary sinus is completely opacified. There is severe mucosal thickening in the right maxillary sinus. The osteomeatal units are occluded. Nasal septum is midline. The right sphenoid sinus is completely occluded. There is severe mucosal thickening in the left sphenoid sinus. There is no abnormal bone production or destruction. The orbits are grossly unremarkable. Impression: 1. Pansinusitis. . Dictated by: BRIE HUIZAR 12/10/2007 16:28 Electronically signed by: BRIE HUIZAR 12/11/2007 08:12 Transcribed: 12/10/2007 19:05 AMK Procedure Note Brie Huizar - 12/11/2007 [facility] [address], [place] [address] Admit Date: 12/10/2007 ALBERTA LUIS Sex: M Admit Prov: TIMOTEO MURDOCK Date: 1970 Primary Care Prov: PCP , NONE CMRN: [id number] [id number] [facility] Ordering Prov: N/A Interpretation CT maxillofacial without contrast 12/10/2007 History: Chronic sinusitis Technique: 2.5 mm coronal images without contrast Findings: There are no previous examinations for comparison. There is severe mucosal thickening in the left frontal sinus. Theright frontal sinus is completely opacified. The ethmoid air cells arecompletely opacified bilaterally. The left maxillary sinus is completelyopacified. There is severe mucosal thickening in the right maxillary sinus.The osteomeatal units are occluded. Nasal septum is midline. The rightsphenoid sinus is completely occluded. There is severe mucosal thickening inthe left sphenoid sinus. There is no abnormal bone production ordestruction. The orbits are grossly unremarkable. Impression: 1. Pansinusitis. . Dictated by: BRIE HUIZAR 12/10/2007 16:28 Electronically signed by: BRIE HUIZAR 12/11/2007 08:12 Transcribed: 12/10/2007 19:05 AMK Timoteo [address] MD CT ORDERABLES Final Result documented in this encounter Visit Diagnoses Diagnosis Unspecified sinusitis (chronic) documented in this encounter Care Teams Agricultural Education Instructor Relationship Specialty Start Date End Date Pedro Luis Perea MD [address] [place] [address] PCP - General 12/24/07 03/27/16 documented as of this encounter
--- OUTSIDE RECORDS SUMMARY | 2025-03-22 08:30 | XMS_ITS | Encounter Summary ---
Author Organization [facility] Address [address] [place] [address] Care Team Providers Care Time Checker Name Role Phone Pedro Luis Perea MD Primary Care Provider [phone] Encounter Details Date Type Department Care Team (Latest Contact Info) Description 03/03/2009 Outpatient Historical HIS [facility] Delaney, Ascencion Hamilton MD NO ADDRESS ON FILE Unspecified Sinusitis (Chronic) Social History Tobacco Use Types Packs/Day Years Used Date Smoking Tobacco: Never Alcohol Use Standard Drinks/Week Comments Yes 5 (1 standard drink = 0.6 oz pur e alcohol) Sex and Gender Information Value Date Recorded Sex Assigned at Not on file Legal Sex Male 3:16 AM PAR[employer]IL[employer] Gender Identity Not on file Sexual Orientation Not on file documented as of this encounter Plan of Treatment Not on file documented as of this encounter Procedures Procedure Name Priority Date/Time Associated Diagnosis Comments CBC WITH DIFFERENTIAL Routine 03/03/2009 4:12 PM CDT ALLERGY PROFILE, INTERPRETATION Routine 03/03/2009 3:21 PM CDT ALLERGY PANEL (EAST REGION) Routine 03/03/2009 3:21 PM CDT IMMUNOGLOBULINS IGG IGA IGM Routine 03/03/2009 3:21 PM CDT documented in this encounter Results * (ABNORMAL) CBC WITH DIFFERENTIAL (03/03/2009 4:12 PM CDT) HEMATOCRIT 43.7 40.0 - 48.0 % [facility] RDW-STDEV 41.7 37.1 - 48.7 fL [facility] RBC 4.90 4.50 - 5.40 M/uL [facility] MCHC 34.6 31.5 - 35.5 % [facility] MCV 89.2 82.0 - 99.0 fL [facility] PLATELETS 292 140 - 350 K/uL [facility] HEMOGLOBIN 15.1 13.6 - 16.5 g/dL [facility] RDW 13.0 11.5 - 14.5 % [facility] WBC 11.9(H) 4.0 - 9.8 K/uL [facility] MCH 30.8 27.2 - 32.6 pg [facility] MPV 10.7 9.3 - 12.4 fL [facility] MONOCYTES 12 3 - 13 % [facility] MONOCYTE ABSOLUTE 1.36(H) 0.10 - 1.30 K/uL [facility] NEUTROPHILS 76(H) 45 - 70 % [facility] NEUTROPHIL ABSOLUTE 9.01(H) 1.90 - 7.00 K/uL [facility] EOSINOPHILS 0 0 - 7 % [facility] EOSINOPHIL ABSOLUTE 0.01 0.00 - 0.70 K/uL [facility] LYMPHOCYTES 12(L) 16 - 45 % [facility] LYMPHOCYTE ABSOLUTE 1.47 0.70 - 4.50 K/uL [facility] BASOPHILS 0 0 - 2 % [facility] BASOPHILS ABSOLUTE 0.01 0.00 - 0.20 K/uL [facility] Blood specimen (specimen) 03/03/2009 4:12 PM CDT 03/03/2009 4:12 PM CDT us Ascencion Delaney MD HEMATOLOGY ORDERABLES Edited Performing Organization Address City/[facility] de Phone Number INTERFACE SYSTEM Refer to clinic/hospital department [facility] CLIA# [id number] [address] [place] [address] * ALLERGY PROFILE, INTERPRETATION (03/03/2009 3:21 PM CDT) [facility] Signature RAST INTERP See Result Comment [facility] Comment: Specific Level of Allergen IGE Class kU/L Specific IGE Antibody ----- --------- 0 <0.35 Absent/Undetectable 1 0.35-0.70 Low Level 2 0.71-3.50 Moderate Level 3 3.51-17.5 High Level 4 17.6-50 Very High Level 5 51-100 Very High Level 6 >100 Very High Level Allergens denoted with a include results using one or more analyte specific reagents. In those cases, the test was developed and its performance characteristics determined by [employer]. It has not been cleared or approved by the U.S. Food and Drug Administration. The FDA has determined that such clearance is not necessary. Performance characteristics refer to the analytical performance of the test. Lab test performed by: [employer] [place] [id number] HONG SMITH MD 03/03/2009 3:21 PM CDT 03/03/2009 3:44 PM CDT Ascencion Delaney MD CHEMISTRY ORDERABLES Final R esult Performing Organization Address [facility] Co de Phone Number INTERFACE SYSTEM Refer to clinic/hospital department [facility] CLIA# [id number] [address] [place] [address] * (ABNORMAL) ALLERGY PANEL REGION VIII (03/03/2009 3:21 PM CDT) [facility] IGE 279(H) <NM=993 kU/L [facility] Comment: Lab test performed by: [employer] [place] [id number] [id number] HONG SMITH MD DERMATOPHAGOIDES FARINAE IGE <0.35 kU/L [facility] CLADOSPORIUM HERB %RESP(CLASS) 2 [facility] PENICILLIUM NOTATUM % RESP(CLASS) 0 [facility] A. ALTERNATA IGE 3.05(H) kU/L [facility] D. FARINAE % RESP (CLASS) 0 [facility] A. FUMIGATUS IGE 1.74(H) kU/L [facility] D. PTERONYSSINUS % RESP(CLASS) 0 [facility] A. ALTERNATA % RESP (CLASS) 2 [facility] Comment: Lab test performed by: [employer] [address] [id number] [place] [address] HONG SMITH MD CLADOSPORIUM HERBARUM IGE 0.87(H) kU/L [facility] DERMATOPHAGOIDES PTERONYSSINUS IGE <0.35 kU/L [facility] PENICILLIUM NOTATUM IGE <0.35 kU/L [facility] A. FUMIGATUS % RESP (CLASS) 2 [facility] CAT DANDER IGE <0.35 kU/L [facility] DOG DANDER IGE <0.35 kU/L [facility] DOG DANDER % RESP (CLASS) 0 [facility] Comment: Lab test performed by: [facility] [id number] [place] [address] HONG SMITH MD CAT DANDER % RESP (CLASS) 0 [facility] COCKROACH IGE <0.35 kU/L [facility] COCKROACH % RESP (CLASS) 0 [facility] Comment: Lab test performed by: [employer] [address] [id number] [place] [address] HONG SMITH MD [place] % RESPONSE (CLASS) 0 [facility] [place] IGE <0.35 kU/L [facility] [place] % RESPONSE (CLASS) 0 [facility] BOX-ELDER IGE <0.35 kU/L [facility] WHITE LEON IGE <0.35 kU/L [facility] [place] % RESPONSE (CLASS) 0 [facility] [place] IGE <0.35 kU/L [facility] [place] % RESPONSE (CLASS) 0 [facility] [place] IGE <0.35 kU/L [facility] BOX-ELDER % RESP (CLASS) 0 [facility] WHITE LE[place] % RESPONSE (CLASS) 0 [facility] Comment: Lab test performed by: [employer] [id number] [place] [address] HONG SMITH MD [place] T[place] IGE <0.35 kU/L [facility] [place] % RESP (CLASS) 0 [facility] Comment: Lab test performed by: [employer] [id number] [facility] [place] [address] HONG SMITH MD [place] % RESP (CLASS) 0 [facility] ELM IGE <0.35 kU/L [facility] OAK IGE <0.35 kU/L [facility] MAT GRASS IGE 3.48(H) kU/L [facility] ALLERGEN BERMUDA GRASS 0.40(H) kU/L [facility] MAT GRASS % RESPONSE (CLASS) 2 [facility] Comment: Lab test performed by: [employer] [id number] [facility] [place] [address] HONG SMITH MD BERMUDA GRASS % RESPONSE (CLASS) 1 [facility] HICKORY PECAN TREE IGE <0.35 kU/L [facility] WHITE MULBERRY % RESPONSE (CLASS) 0 [facility] Comment: Lab test performed by: [employer] [place] [id number] [place] [address] HONG SMITH MD HICKORY PECAN TREE % RESP (CLASS) 0 [facility] WHITE MULBERRY IGE <0.35 kU/L [facility] ALLERGEN ROUGH PIGWEED <0.35 kU/L [facility] COMMON RAGWEED IGE <0.35 kU/L [facility] ROUGH PIGWEED % RESPONSE (CLASS) 0 [facility] Comment: Lab test performed by: [employer] [facility] [facility] [address] [place] [address] HONG SMITH MD COMMON RAGWEED % RESP CLASS 0 [facility] HUNGARIAN THISTLE % RESPONSE(CLASS) 0 [facility] ALLERGEN RG SAPP ELDER <0.35 kU/L [facility] ALLERGEN HUNGARIAN THISTLE <0.35 kU/L [facility] ROUGH SAPP ELDER %RESP(CLASS) 0 [facility] Comment: Lab test performed by: [employer] [id number] [place] [address] HONG SMITH MD 03/03/2009 3:21 PM CDT 03/03/2009 3:44 PM CDT us Ascencion Delaney MD CHEMISTRY ORDERABLES Edited INTERFACE SYSTEM Refer to clinic/hospital department [facility] CLIA# [id number] [address] [place], [place] [address] * IMMUNOGLOBULINS IGG IGA IGM (03/03/2009 3:21 PM CDT) IGA 158.6 80.0 - 375.0 mg/dL [facility] IGG 1003 699 - 1463 mg/dL [facility] IGM 85.9 47.0 - 222.0 mg/dL [facility] 03/03/2009 3:21 PM CDT 03/03/2009 3:44 PM CDT us Ascencion Delaney MD CHEMISTRY ORDERABLES Final R esult INTERFACE SYSTEM Refer to clinic/hospital department [facility] CLIA# [id number] [address] [place] [address] documented in this encounter Visit Diagnoses Diagnosis Unspecified sinusitis (chronic) documented in this encounter Care Teams Time Checker Relationship Specialty Start Date End Date Pedro Luis Perea MD [address] [place] [address] PCP - General 12/24/07 03/27/16 documented as of this encounter
[2025-03-22 09:18] LABS: Anion Gap 4 mmol/L (4-12); Blood Urea Nitrogen 15 mg/dL (9-20); Calcium 8.9 mg/dL (8.4-10.2); Carbon Dioxide 29 mmol/L (22-30); Chloride 104 mmol/L (98-107); Estimated Glomerular Filt Rate > 60; Glucose 94 mg/dL (65-110); Potassium 4.0 mmol/L (3.4-5.0); Sodium 137 mmol/L (137-145)
== END 2025-03-22 08:23 | disposition home or self-care (01) ==
DX: Z01.810 Encounter for preprocedural cardiovascular examination (principal); I45.9 Conduction disorder, unspecified; Z01.812 Encounter for preprocedural laboratory examination
CPT/HCPCS: 36415; 80048; 93005